=== PATIENT | female | born 1985 | race Caucasian/White ===

== ENCOUNTER 2017-11-12 20:21 | Emergency (ER) | payer SELFPAY ==
[2017-11-12] MEDS ORDERED: Sodium Chloride 0.9% 10 ML Syringe FLUSH PRN (20:50)
[2017-11-12] MEDS ORDERED: HYDROmorphone 0.5 MG/0.5 ML Syringe IVPUSH ONE ×3 (20:51→23:06)
[2017-11-12] MEDS ORDERED: Sodium Chloride 0.9% 1,000 ML IV ONE (20:51)
[2017-11-12] MEDS ORDERED: Ondansetron 4 MG/2 ML SDV IVPUSH ONE ×2 (20:51→23:06)
--- NOTE | 2017-11-12 21:00 | EDM.PDOC ---
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 complaining of right adnexal pelic pain, heavy vaginal bleeding with clots, and n/v since 0100 am this morning. States the pain is described as being sharp in nature localized with no radiation. At rest is a 8/10. With movement or palpation is a 10/10. No history of similar pain. Last menstrual cycle was 1.5 wks ago described as normal. States she is sexually active in a monogamous relationship. Last time she had intercourse was 2 months ago. Denies being . Has no history. She has no history of ovarian cyst. She has her appendix but notes her gallbladder has been removed. Has had intermittent dizziness with ambulation and body position changes from a seated to a standing. No presyncope or syncopal episodes. No fever, recent sick exposures, recent ingestion of battery questionable food, diarrhea, or increased flatulence. She has no history of 60 transmitted diseases. Patient has a past medical history of epilepsy and is currently on Lamictal. Abdominal Pain Score (Numeric/FACES): 10 - Related Data Allergies Allergy/AdvReac Type Severity Reaction Status Date / Time fentanyl Allergy Rash Verified 11/12/17 20:29 ibuprofen Allergy Rash Verified 11/12/17 20:29 ketorolac [From Toradol] Allergy Rash Verified 11/12/17 20:29 latex Allergy Rash Verified 11/12/17 20:29 levetiracetam [From Keppra] Allergy Rash Verified 11/12/17 20:29 morphine Allergy Rash Verified 11/12/17 20:29 Penicillins Allergy Rash Verified 11/12/17 20:29 phenobarbital Allergy Rash Verified 11/12/17 20:29 tramadol Allergy Rash Verified 11/12/17 20:29 Home Meds: Home Meds lamoTRIgine [Lamictal] 100 mg PO BID 11/12/17 [History] Acetaminophen/oxyCODONE [Percocet 325-5 MG] 1 tab PO Q8H PRN #12 tablet [Rx] Misoprostol [Cytotec] 200 mcg PO QID #24 tablet 11/13/17 [Rx] Ondansetron [Zofran ODT] 4 mg PO Q4H PRN #20 tab.dis 11/13/17 [Rx] Past Medical History - Past Health History Medical/Surgical History: Denies Medical/Surgical History Gastrointestinal History: Reports: None Genitourinary History: Reports: None Social & Family History - Tobacco Use Smoking Status *Q: Unknown Ever Smoked ED ROS GENERAL - Review of Systems Review Of Systems: ROS reveals no pertinent complaints other than HPI. ED EXAM, RENAL/ - Physical Exam Exam: See Below Exam Limited By: No Limitations General Appearance: Alert, WD/WN, Mild Distress Ears: Hearing Grossly Normal Nose: Normal Inspection Throat/Mouth: Normal Voice, No Airway Compromise Neck: Normal Inspection, Supple Respiratory/Chest: No Respiratory Distress, Lungs Clear, Normal Breath Sounds, No Accessory Muscle Use, Chest Non-Tender Cardiovascular: Normal Peripheral Pulses, Regular Rate, Rhythm, No Murmur GI/Abdominal: Normal Bowel Sounds, Soft, Tender (Severe pain to the right adnexa. Mild pain to mcburneys point. ) Back Exam: Normal Inspection. No: CVA Tenderness (L), CVA Tenderness (R) Neurological: Alert, Oriented, CN II-XII Intact, Normal Cognition, No Motor/ Sensory Deficits Psychiatric: Normal Affect, Anxious Skin Exam: Warm, Dry, Intact, Normal Color Course - Vital Signs Last Recorded V/S: Last Vital Signs Temp 37.1 C 11/12/17 20:30 Pulse 116 H 11/12/17 20:30 Resp 18 11/12/17 20:30 BP 132/87 11/12/17 20:30 Pulse Ox 100 11/12/17 20:30 Orthostatic Blood Pressure [ 133/90 Standing] Orthostatic Blood Pressure [ 132/87 Supine] - Orders/Labs/Meds Orders: Active Orders 24 hr Category Date Time Status Orthostatic Vital Signs [RC] ASDIRECTED Care 11/12/17 20:51 Active Peripheral IV Care [RC] . DIRECTED Care 11/12/17 20:50 Active Abdomen Pelvis w Cont [CT] Stat Exams 11/12/17 23:07 Taken Transvaginal Non OB [US] Stat Exams 11/12/17 20:50 Taken PATIENT RETYPE [BBK] Stat Lab 11/12/17 20:48 Results TYPE AND SCREEN [BBK] Stat Lab 11/12/17 20:48 Results Acetaminophen/oxyCODONE [Percocet 325-5 MG] Med 11/13/17 02:00 Once 1 tab PO ONETIME ONE Misoprostol [Cytotec] Med 11/13/17 02:00 Once 400 mcg PO ONETIME ONE Ondansetron [Zofran ODT] Med 11/13/17 02:00 Once 8 mg PO ONETIME ONE Sodium Chloride 0.9% [Saline Flush] Med 11/12/17 20:50 Active 10 ml FLUSH ASDIRECTED PRN Peripheral IV Insertion Adult [OM.PC] Stat Oth 11/12/17 20:49 Ordered Medication Orders Sodium Chloride (Saline Flush) 10 ml FLUSH ASDIRECTED PRN PRN Reason: Keep Vein Open Last Admin: 11/12/17 21:13 Dose: 10 ml Labs: Laboratory Tests 11/12/17 11/12/17 11/12/17 Range/Units 20:48 20:48 20:48 WBC 12.46 H (3.98-10.04) K/mm3 RBC 4.60 (3.98-5.22) M/mm3 Hgb 14.0 (11.2-15.7) gm/L Hct 42.0 (34.1-44.9) % MCV 91.3 (79.4-94.8) fl MCH 30.4 (25.6-32.2) pg MCHC 33.3 (32.2-35.5) g/dl RDW Std Deviation 45.9 (36.4-46.3) fL Plt Count 313 (182-369) K/mm3 MPV 8.7 L (9.4-12.3) fl Neut % (Auto) 67.2 (34.0-71.1) % Lymph % (Auto) 25.0 (19.3-51.7) % [place] % (Auto) 6.0 (4.7-12.5) % Eos % (Auto) 1.4 (0.7-5.8) Baso % (Auto) 0.2 (0.1-1.2) % Neut # (Auto) 8.37 H (1.56-6.13) K/mm3 Lymph # (Auto) 3.11 (1.18-3.74) K/mm3 [place] # (Auto) 0.75 H (0.24-0.36) K/mm3 Eos # (Auto) 0.17 (0.04-0.36) K/mm3 Baso # (Auto) 0.03 (0.01-0.08) K/mm3 Manual Slide Review Not Reportable Sodium 139 (136-145) mEq/L Potassium 3.6 (3.5-5.1) mEq/L Chloride 104 (98-107) mEq/L Carbon Dioxide 21 (21-32) mEq/L Anion Gap 17.6 H (5-15) BUN 12 (7-18) mg/dL Creatinine 0.9 (0.55-1.02) mg/dL Est Cr Clr Drug Dosing 82.25 mL/min Estimated GFR (MDRD) > 60 (>60) mL/min BUN/Creatinine Ratio 13.3 L (14-18) Glucose 103 (74-106) mg/dL Calcium 9.2 (8.5-10.1) mg/dL Total Bilirubin 0.5 (0.2-1.0) mg/dL AST 20 (15-37) U/L ALT 28 (14-59) U/L Alkaline Phosphatase 36 L (46-116) U/L C-Reactive Protein 2.8 H* (<1.0) mg/dL Total Protein 8.3 H (6.4-8.2) g/dl Albumin 3.8 (3.4-5.0) g/dl Globulin 4.5 gm/dL Albumin/Globulin Ratio 0.8 L (1-2) HCG, Qual (NEGATIVE) Urine Color (Yellow) Urine Appearance (Clear) Urine pH (5.0-8.0) Ur Specific [place] (1.005-1.030) Urine Protein (Negative) Urine Glucose (UA) (Negative) Urine Ketones (Negative) Urine Occult Blood (Negative) Urine Nitrite (Negative) Urine Bilirubin (Negative) Urine Urobilinogen (0.2-1.0) Ur Leukocyte Esterase (Negative) Urine RBC (0-5) /hpf Urine WBC (0-5) /hpf Ur Epithelial Cells (0-5) /hpf Urine Bacteria (FEW) /hpf Urine Mucus (FEW) /hpf Blood Type AB NEGATIVE Gel Antibody Screen Negative 11/12/17 11/12/17 Range/Units 20:48 20:51 WBC (3.98-10.04) K/mm3 RBC (3.98-5.22) M/mm3 Hgb (11.2-15.7) gm/L Hct (34.1-44.9) % MCV (79.4-94.8) fl MCH (25.6-32.2) pg MCHC (32.2-35.5) g/dl RDW Std Deviation (36.4-46.3) fL Plt Count (182-369) K/mm3 MPV (9.4-12.3) fl Neut % (Auto) (34.0-71.1) % Lymph % (Auto) (19.3-51.7) % [place] % (Auto) (4.7-12.5) % Eos % (Auto) (0.7-5.8) Baso % (Auto) (0.1-1.2) % Neut # (Auto) (1.56-6.13) K/mm3 Lymph # (Auto) (1.18-3.74) K/mm3 [place] # (Auto) (0.24-0.36) K/mm3 Eos # (Auto) (0.04-0.36) K/mm3 Baso # (Auto) (0.01-0.08) K/mm3 Manual Slide Review Sodium (136-145) mEq/L Potassium (3.5-5.1) mEq/L Chloride (98-107) mEq/L Carbon Dioxide (21-32) mEq/L Anion Gap (5-15) BUN (7-18) mg/dL Creatinine (0.55-1.02) mg/dL Est Cr Clr Drug Dosing mL/min Estimated GFR (MDRD) (>60) mL/min BUN/Creatinine Ratio (14-18) Glucose (74-106) mg/dL Calcium (8.5-10.1) mg/dL Total Bilirubin (0.2-1.0) mg/dL AST (15-37) U/L ALT (14-59) U/L Alkaline Phosphatase (46-116) U/L C-Reactive Protein (<1.0) mg/dL Total Protein (6.4-8.2) g/dl Albumin (3.4-5.0) g/dl Globulin gm/dL Albumin/Globulin Ratio (1-2) HCG, Qual Negative (NEGATIVE) Urine Color Dark yellow (Yellow) Urine Appearance Cloudy H (Clear) Urine pH 5.5 (5.0-8.0) Ur Specific [place] > or = 1.030 (1.005-1.030) Urine Protein Trace H (Negative) Urine Glucose (UA) Negative (Negative) Urine Ketones Negative (Negative) Urine Occult Blood 3+ H (Negative) Urine Nitrite Negative (Negative) Urine Bilirubin Negative (Negative) Urine Urobilinogen 0.2 (0.2-1.0) Ur Leukocyte Esterase Negative (Negative) Urine RBC 30-40 H (0-5) /hpf Urine WBC 0-5 (0-5) /hpf Ur Epithelial Cells 0-5 (0-5) /hpf Urine Bacteria Not seen (FEW) /hpf Urine Mucus Not seen (FEW) /hpf Blood Type Gel Antibody Screen Meds: Medications Generic Name Dose Route Start Last Admin Trade Name Briana PRN Reason Stop Dose Admin Sodium Chloride 10 ml 11/12/17 20:50 11/12/17 21:13 Saline Flush FLUSH 10 ml ASDIRECTED PRN Administration Keep Vein Open Discontinued Medications Generic Name Dose Route Start Last Admin Trade Name Briana PRN Reason Stop Dose Admin Hydromorphone HCl 0.5 mg 11/12/17 20:51 11/12/17 21:04 Dilaudid IVPUSH 11/12/17 20:52 0.5 mg ONETIME ONE Administration Hydromorphone HCl 0.5 mg 11/12/17 21:46 11/12/17 21:50 Dilaudid IVPUSH 11/12/17 21:47 0.5 mg ONETIME ONE Administration Hydromorphone HCl 0.5 mg 11/12/17 23:06 11/12/17 23:15 Dilaudid IVPUSH 11/12/17 23:07 0.5 mg ONETIME ONE Administration Sodium Chloride 1,000 mls @ 250 mls/hr 11/12/17 20:51 11/12/17 21:02 Normal Saline IV 11/13/17 00:50 250 mls/hr ONETIME ONE Administration Ondansetron HCl 4 mg 11/12/17 20:51 11/12/17 21:02 Zofran IVPUSH 11/12/17 20:52 4 mg ONETIME ONE Administration Ondansetron HCl 4 mg 11/12/17 23:06 11/12/17 23:13 Zofran IVPUSH 11/12/17 23:07 4 mg ONETIME ONE Administration - Re-Assessments/Exams Free Text/Narrative Re-Assessment/Exam: Patient reports heavy vaginal bleeding with clots, one pad every 2 hours since this morning. Denies being . Last menstrual cycle was a week ago and was normal. She also has some nausea and vomiting with dizziness and also unable to keep anything down. IV established with normal saline 250 mL per hour, Dilaudid 0.5 mg IVP, Zofran 4 mg IVP. Initial labs and studies include CBC, chem 14, type and screen, hcg, UA, CRP, orthostatic vitals, and transvaginal non-OB ultrasound. Labs reviewed: White blood cell count 12.46, hemoglobin 14.0, platelet count 313 , sodium 139, potassium 3.6, creatinine 0.9, CRP 2.8, hCG negative. UA positive for protein, occult blood 3+, urine rbc's 30-40. Patient complaining of increasing pain after the ultrasound. Ordered Dilaudid 0.5 mg IVP. Ultrasound impression: The endometrium is thick or in the lower uterine segment and heterogeneous. This may be secondary to active uterine bleeding or secretory phase of the patient's menstrual cycle. There is no sign of endometrial mass in the endometrium is normal and overall caliber. The uterus and ovaries are normal in volume. 2252 I did speak with Dr. Chaves medication aid JINRIKSHA DRIVER Specialist. Suggested cytotek 400mg buccal with prescription provided on discharge of 200mg every 6 hrs for 6 days. If patient does not have a JINRIKSHA DRIVER specialists to followup with him after [place] otherwise make an appt with her JINRIKSHA DRIVER to be evaluated in the next week. If not intending to get may start her on BCP with instructions to take everyday for 90 days. He suggests speculum exam prior to discharge. Discussed conversation with patient. She does not want to take BCP at this point. Will take cytotek and followup with Dr. Chaves. 11/12/17 23:07 Speculum and bimanual exam performed with copious amounts of blood present within the vaginal vault. With bimanual patient has severe tenderness to the right adnexal. At this point do not have a clear etiology 12 the patient's have and right adnexal pain. In addition reassessed patient's abdomen with positive McBurney's point tenderness with palpation. Ordered Dilaudid 0.5 mg IVP, Zofran 4 mg IVP, and CT the abdomen and pelvis with oral and IV contrast. Departure - Departure Disposition: Home, Self-Care 01 Clinical Impression: Abdominal pain Qualifiers: Abdominal location: right lower quadrant Qualified Code(s): R10.31 - Right lower quadrant pain - Discharge Information Prescriptions: Acetaminophen/oxyCODONE [Percocet 325-5 MG] 1 tab PO Q8H PRN #12 tablet PRN Reason: Pain Misoprostol [Cytotec] 200 mcg PO QID #24 tablet Ondansetron [Zofran ODT] 4 mg PO Q4H PRN #20 tab.dis PRN Reason: Nausea Referrals: Saw Chaves MD [Physician] - Forms: ED Department Discharge Additional Instructions: 1. Take acetaminophen (tylenol) as needed for pain. Take cytotec (misoprostol) as prescribed. 2. Follow up with Dr. Chaves as soon as possible or the investment executive doctor of your choice 3. Return to the ED if you have severe pain, fever, or other concerning symptoms - My Orders Last 24 Hours: My Active Orders 11/13/17 02:00 Acetaminophen/oxyCODONE [Percocet 325-5 MG] 1 tab PO ONETIME ONE Misoprostol [Cytotec] 400 mcg PO ONETIME ONE Ondansetron [Zofran ODT] 8 mg PO ONETIME ONE - Assessment/Plan Last 24 Hours: My Active Orders 11/13/17 02:00 Acetaminophen/oxyCODONE [Percocet 325-5 MG] 1 tab PO ONETIME ONE Misoprostol [Cytotec] 400 mcg PO ONETIME ONE Ondansetron [Zofran ODT] 8 mg PO ONETIME ONE <Aniceto Schuster - Last Filed: 11/13/17 02:04> Course - Re-Assessments/Exams Free Text/Narrative Re-Assessment/Exam: 12/19/17 01:51 CT scan of the abd/pelvis shows no acute abnormality. Several lymph nodes thought to be reactive. Departure - Departure Time of Disposition: 01:52 - My Orders Last 24 Hours: My Active Orders 11/13/17 02:00 Acetaminophen/oxyCODONE [Percocet 325-5 MG] 1 tab PO ONETIME ONE Misoprostol [Cytotec] 400 mcg PO ONETIME ONE Ondansetron [Zofran ODT] 8 mg PO ONETIME ONE - Assessment/Plan Last 24 Hours: My Active Orders 11/13/17 02:00 Acetaminophen/oxyCODONE [Percocet 325-5 MG] 1 tab PO ONETIME ONE Misoprostol [Cytotec] 400 mcg PO ONETIME ONE Ondansetron [Zofran ODT] 8 mg PO ONETIME ONE
[2017-11-13] MEDS ORDERED: Ondansetron 4 MG Tab.DIS PO ONE (02:00)
[2017-11-13] MEDS ORDERED: Acetaminophen/oxyCODONE 325-5 MG Tab PO ONE (02:00)
[2017-11-13] MEDS ORDERED: Misoprostol 100 MCG Tab PO ONE (02:00)
--- NOTE | 2017-11-14 08:39 | US ---
Pelvic ultrasound: Multiple real-time images were obtained transvaginally. Comparison: No prior pelvic ultrasound. Uterus is anteverted. Slightly asymmetric thickness identified of the endometrial cavity with maximum measurement of 7 mm. This asymmetric appearance most likely due to small amount of endometrial blood. No discrete myometrial abnormality is seen. No nabothian cysts are noted. Follicles are seen within both ovaries. No larger cyst or solid abnormality is seen. No free fluid is seen. Measurements: Uterus: Length 5.7 cm, AP height 2.7 cm, transverse width 3.1 cm Right ovary: 3.2 x 1.6 x 1.8 cm Left ovary: 3.7 x 1.3 x 2.1 cm Impression: 1. Slightly asymmetric thickness of the endometrial cavity most likely due to small amount of endometrial blood. 2. Other portions of the pelvic ultrasound are unremarkable. Diagnostic code #2 I agree with preliminary report issued by [employer] ([facility] preliminary report dictated on 11/12/17, 11:39 PM Central Time) MARIYA
--- NOTE | 2017-11-14 08:41 | CT ---
CT abdomen and pelvis Technique: Multiple axial sections were obtained from above the dome of the diaphragm inferiorly through the pubic symphysis. Intravenous contrast was utilized. No oral contrast has been given. Delayed images were also obtained through the bladder. Findings: Visualized lung bases show nothing acute. Liver shows no focal parenchymal abnormality. Surgical clips are seen from prior cholecystectomy. Spleen appears within normal limits. Adrenal glands show no nodule. Pancreas is normal. Kidneys show symmetric contrast enhancement without hydronephrosis or mass. Aorta shows no aneurysmal dilatation. No retroperitoneal adenopathy or mesenteric abnormalities are seen. Appendix is seen and appears normal. No pelvic mass or adenopathy is seen. No free fluid or inflammatory change is seen within the abdomen or pelvis. No bowel wall thickening is identified. Delayed images show contrast within the distal ureters and within the bladder. Bone window settings were reviewed which appear within normal limits for the patient's age. Impression: 1. No findings of appendicitis. Other normal findings as noted above. Nothing acute is identified. Diagnostic code #2 I agree with preliminary report issued by [employer] ([facility] preliminary report dictated on 11/13/17, 2:42 AM Central Time) [facility]
== END 2017-11-13 02:19 | disposition home or self-care (01) ==
LOC: JD.ED 20:21
DX: R10.31 Right lower quadrant pain (principal); Z88.6 Allergy status to analgesic agent; Z91.040 Latex allergy status; Z88.5 Allergy status to narcotic agent; Z88.8 Allergy status to other drugs, medicaments and biological substances
CPT/HCPCS: 36415; 74177; 76830; 80053; 81001; 84703; 85025; 86140; 86850; 86900; 86901; 96361; 96374; 96375; 96376; 99284; A9270; J1170; J2405; J7040; J7050; P9612